=== PATIENT | female | born 1945 | race Caucasian/White ===

== ENCOUNTER 2020-12-24 11:16 | Observation (INO) ==
[2020-12-24] MEDS ORDERED: cefTRIAXone 1,000 MG in SODIUM CHLORIDE 0.9% 100 ML IV STA (13:29)
[2020-12-24 14:11] LABS: Basophils % 0.4 % (0.0-0.8); Eosinophils # 0.1 10*3/uL (0.0-0.87); Eosinophils % 1.3 % (0.00-10.9); Immature Granulocytes % 0.4 %; Immature Granulocytes Absolute 0.02 #; Lymphocytes # 1.2 10*3/uL (1.4-4.0); Lymphocytes % 21.9 % (21.3-54.2); Mean Corpuscular HGB Conc 32.5 GM/DL (32-36); Mean Platelet Volume 10.9 FL (9.6-12.0); Monocytes % 9.6 % (1.7-12.7); Neutrophils % 66.4 % (38.7-73.9); Platelet Count 105 T/CUMM (130-400); Red Blood Count 4.35 MC/CUMM (3.8-5.5); Red Cell Distribution Width 13.9 % (9.3-17.3); White Blood Count 5.3 T/CUMM (4-12)
[2020-12-24 14:17] LABS: Bilirubin,Urine Negative (Negative); Blood, Urine Negative (Negative); Glucose,Urine (UA) >=500 mg/dL (Negative); Hyaline Casts,Urine 6 /LPF (0-3); Ketones,Urine Negative (Negative); Mucus,Urine Occasional /LPF (Occasional); Nitrite,Urine Negative (Negative); Protein,Urine 30 MG/DL; RBC,Urine 3 /HPF (0-4); Squamous Epithelial Cell,Urine Occasional /HPF (0-10); Urine Appearance CLEAR (Clear); Urine Color Yellow (Yellow); Urine Specific Gravity 1.021 (1.001-1.035)
[2020-12-24 14:36] LABS: Albumin 3.5 G/DL (3.4-5.0); Bilirubin,Total 2.1 MG/DL (0.20-1.00); Calcium 8.7 MG/DL (8.5-10.1); Osmolality,Calculated 292.1 MOS/KG (273-304); Potassium 3.6 MMOL/L (3.5-5.1); Total Protein 7.3 G/DL (6.4-8.2)
[2020-12-24 16:41] LABS: ABG Base Excess 3.1 MMOL/L (-2.5-2.5); ABG HCO3 27.1 MMOL/L (20-26); ABG Oxygen Saturation 96.2 % (95-100); ABG PH 7.483 (7.35-7.45); ABG TCO2 22.9 MMOL/L (23-27)
[2020-12-24] MEDS ORDERED: ONDANSETRON 4 MG/2 ML VIAL IV PRN (16:49)
[2020-12-24] MEDS ORDERED: ACETAMINOPHEN 325 MG TABLET PO PRN (16:49)
[2020-12-24] MEDS ORDERED: DEXTROSE 50% 25 GM/50 ML VIAL IV PRN ×2 (16:49)
[2020-12-24] MEDS ORDERED: GLUCAGON 1 MG VIAL IM PRN ×2 (16:49)
[2020-12-24] MEDS: ENOXAPARIN 30 MG/0.3 ML SYRINGE SUBCUT SCH (17:20)
[2020-12-24] MEDS: SODIUM CHLORIDE 0.9% 1,000 ML IV SCH (17:39)
[2020-12-24] MEDS: LOSARTAN 50 MG TABLET PO SCH (17:39)
[2020-12-24] MEDS ORDERED: POTASSIUM CHLORIDE 20 MEQ TABLET PO SCH (21:00)
[2020-12-24] MEDS: ESCITALOPRAM 10 MG TABLET PO SCH (21:15)
[2020-12-24] MEDS: hydrALAZINE 20 MG/1 ML VIAL IV PRN (21:15)
[2020-12-24] MEDS: INSULIN REGULAR 100 UNIT/ML SUBCUT SCH (21:17)
[2020-12-25 06:10] LABS: Basophils % 0.5 % (0.0-0.8); Eosinophils % 0.7 % (0.00-10.9); Hemoglobin 12.3 GM/DL (12.0-16.0); Immature Granulocytes % 0.3 %; Immature Granulocytes Absolute 0.02 #; Mean Corpuscular HGB Conc 34.2 GM/DL (32-36); Mean Corpuscular Volume 90.5 FL (87-102); Mean Platelet Volume 11.9 FL (9.6-12.0); Neutrophils % 69.5 % (38.7-73.9); Platelet Count 90 T/CUMM (130-400); Red Blood Count 3.98 MC/CUMM (3.8-5.5); Red Cell Distribution Width 13.9 % (9.3-17.3); White Blood Count 6.1 T/CUMM (4-12)
[2020-12-25] MEDS: LEVOTHYROXINE 25 MCG TABLET PO SCH (06:44)
[2020-12-25 06:46] LABS: Calcium 8.3 MG/DL (8.5-10.1); Hypochromasia Slight
[2020-12-25 06:47] LABS: Microcytosis Slight; Platelet Estimate Decreased
[2020-12-25] MEDS ORDERED: LOSARTAN 50 MG TABLET PO SCH (09:00)
[2020-12-25] MEDS: INSULIN REGULAR 100 UNIT/ML SUBCUT SCH ×4 (09:19→22:05)
[2020-12-25] MEDS: cefTRIAXone 1,000 MG in SODIUM CHLORIDE 0.9% 100 ML IV SCH (09:29)
[2020-12-25] MEDS: LOSARTAN 50 MG TABLET PO SCH (09:29)
[2020-12-25] MEDS: hydrALAZINE 20 MG/1 ML VIAL IV PRN (09:29)
[2020-12-25] MEDS: SODIUM CHLORIDE 0.9% 1,000 ML IV SCH ×2 (10:06→23:10)
[2020-12-25] MEDS: POTASSIUM CHLORIDE RIDER 10 MEQ/100 ML PREMIX IV PRN ×7 (10:55→23:08)
[2020-12-25] MEDS: ENOXAPARIN 30 MG/0.3 ML SYRINGE SUBCUT SCH (16:33)
[2020-12-25] MEDS: ESCITALOPRAM 10 MG TABLET PO SCH (22:04)
[2020-12-26] MEDS: POTASSIUM CHLORIDE RIDER 10 MEQ/100 ML PREMIX IV PRN ×3 (00:35→11:30)
[2020-12-26] MEDS: LEVOTHYROXINE 25 MCG TABLET PO SCH (06:00)
[2020-12-26] MEDS: INSULIN REGULAR 100 UNIT/ML SUBCUT SCH ×2 (09:25→11:37)
[2020-12-26] MEDS: cefTRIAXone 1,000 MG in SODIUM CHLORIDE 0.9% 100 ML IV SCH (09:25)
[2020-12-26] MEDS: LOSARTAN 50 MG TABLET PO SCH (09:26)
[2020-12-26 11:55] VITALS: BP 154/74
[2020-12-27] MEDS ORDERED: INFLUENZA VIRUS VACCINE 0.5 ML SYRINGE IM ONE (09:00)
== END 2020-12-26 14:25 | disposition home or self-care (01) ==
LOC: N.EDINP 11:16 → N.ED 11:16 → N.5E 18:23
PROVIDERS: ADMIT Emergency Medicine; ATTEND Emergency Medicine

== ENCOUNTER 2021-08-22 10:50 | Observation (INO) ==
[2021-08-22 12:42] LABS: Basophils % 0.5 % (0.0-0.8); Eosinophils # 0.2 10*3/uL (0.0-0.87); Eosinophils % 1.8 % (0.00-10.9); Hematocrit 41.5 VOL% (35.7-47.0); Immature Granulocytes % 1.1 %; Immature Granulocytes Absolute 0.09 #; Lymphocytes # 1.9 10*3/uL (1.4-4.0); Lymphocytes % 21.8 % (21.3-54.2); Mean Corpuscular HGB Conc 33.7 GM/DL (32-36); Mean Corpuscular Volume 89.2 FL (87-102); Mean Platelet Volume 10.8 FL (9.6-12.0); Monocytes # 0.9 10*3/uL (0.11-0.8); Monocytes % 10.2 % (1.7-12.7); Neutrophils % 64.6 % (38.7-73.9); Platelet Count 168 T/CUMM (130-400); Red Blood Count 4.65 MC/CUMM (3.8-5.5); Red Cell Distribution Width 14.8 % (9.3-17.3); White Blood Count 8.5 T/CUMM (4-12)
[2021-08-22] MEDS ORDERED: SODIUM CHLORIDE 0.9% 1,000 ML IV STA (12:59)
[2021-08-22 13:01] LABS: Albumin 2.9 G/DL (3.4-5.0); Calcium 9.5 MG/DL (8.5-10.1); Osmolality,Calculated 291.4 MOS/KG (273-304); Potassium 3.1 MMOL/L (3.5-5.1); Total Protein 7.2 G/DL (6.4-8.2)
[2021-08-22 13:37] LABS: Hyaline Casts,Urine 1 /LPF (0-3); Mucus,Urine Few /LPF (Occasional); RBC,Urine 1 /HPF (0-4); Squamous Epithelial Cell,Urine Occasional /HPF (0-10)
[2021-08-22 13:38] LABS: Bilirubin,Urine Negative (Negative); Blood, Urine Negative (Negative); Glucose,Urine (UA) 100 mg/dL (Negative); Ketones,Urine Trace mg/dL (Negative); Nitrite,Urine Negative (Negative); Protein,Urine Negative (Negative); Urine Appearance Clear (Clear); Urine Color Yellow (Yellow); Urine Specific Gravity 1.025 (1.001-1.035); Urine Urobilinogen 0.2 eU/dL (<2.0); Urine pH 5.5 (4.5-8.0)
[2021-08-22] MEDS ORDERED: cefTRIAXone 1,000 MG in SODIUM CHLORIDE 0.9% 100 ML IV STA (13:47)
[2021-08-22 14:09] LABS: Barbiturates Screen,Urine Negative (Negative); Benzodiazepines Screen,Urine Negative (Negative); Cannabinoid Screen,Urine Negative (Negative); Opiate Screen,Urine Negative (Negative); Phencyclidine Screen,Urine Negative (Negative)
[2021-08-22] MEDS ORDERED: GLUCAGON 1 MG VIAL IM PRN ×2 (14:46)
[2021-08-22] MEDS ORDERED: hydrALAZINE 20 MG/1 ML VIAL IV PRN (14:46)
[2021-08-22] MEDS ORDERED: DEXTROSE 50% 25 GM/50 ML VIAL IV PRN (14:46)
[2021-08-22] MEDS ORDERED: ALUMINUM/MAGNES/SIMETH MAX STR 30 ML UDCUP PO PRN (14:46)
[2021-08-22] MEDS ORDERED: LACTULOSE 20 GM/30 ML UDCUP PO PRN (14:46)
[2021-08-22] MEDS ORDERED: ACETAMINOPHEN 325 MG TABLET PO PRN (14:46)
[2021-08-22] MEDS ORDERED: ONDANSETRON 4 MG/2 ML VIAL IV PRN (14:46)
[2021-08-22] MEDS ORDERED: DEXTROSE 10% 250 ML BAG IV PRN (14:55)
[2021-08-22] MEDS ORDERED: POTASSIUM CHLORIDE 20 MEQ TABLET PO PRN (15:06)
[2021-08-22] MEDS: LACTATED RINGERS 1,000 ML IV SCH (16:04)
[2021-08-22] MEDS: INSULIN LISPRO 100 UNIT/ML SUBCUT SCH ×2 (17:31→20:51)
[2021-08-22] MEDS: ENOXAPARIN 40 MG/0.4 ML SYRINGE SUBCUT SCH (17:31)
[2021-08-22] MEDS: POTASSIUM CHLORIDE 20 MEQ TABLET PO SCH (20:51)
[2021-08-22] MEDS: MONTELUKAST 10 MG TABLET PO SCH (20:51)
[2021-08-22] MEDS ORDERED: LOSARTAN 50 MG TABLET PO SCH (21:00)
[2021-08-22] MEDS ORDERED: NITROFURANTOIN MACROCRYSTALS 50 MG CAPSULE PO SCH (21:00)
[2021-08-23] MEDS: LACTATED RINGERS 1,000 ML IV SCH ×2 (02:06→13:29)
[2021-08-23 04:46] LABS: Basophils % 0.6 % (0.0-0.8); Eosinophils # 0.1 10*3/uL (0.0-0.87); Eosinophils % 1.4 % (0.00-10.9); Hematocrit 35.4 VOL% (35.7-47.0); Immature Granulocytes Absolute 0.05 #; Lymphocytes # 1.4 10*3/uL (1.4-4.0); Mean Corpuscular HGB Conc 33.9 GM/DL (32-36); Mean Corpuscular Volume 88.1 FL (87-102); Mean Platelet Volume 10.9 FL (9.6-12.0); Monocytes # 0.4 10*3/uL (0.11-0.8); Monocytes % 8.1 % (1.7-12.7); Neutrophils % 60.9 % (38.7-73.9); Platelet Count 107 T/CUMM (130-400); Red Blood Count 4.02 MC/CUMM (3.8-5.5); Red Cell Distribution Width 14.4 % (9.3-17.3); White Blood Count 5.1 T/CUMM (4-12)
[2021-08-23 05:06] LABS: Follicle Stimulating Hormone 44.11 MIU/ML; Luteinizing Hormone 9.97 MIU/ML
[2021-08-23 05:18] LABS: Estradiol 24.3 PG/ML; Prolactin 11.3 ng/mL (2.8-29.2)
[2021-08-23 05:22] LABS: Albumin 2.4 G/DL (3.4-5.0); Bilirubin,Total 1.3 MG/DL (0.20-1.00); Calcium 8.2 MG/DL (8.5-10.1); Osmolality,Calculated 288.8 MOS/KG (273-304); Potassium 3.3 MMOL/L (3.5-5.1); Risk Ratio 2.83; Thyroid Stimulating Hormone 1.43 uIU/ml (0.358-3.74); Total Protein 6.2 G/DL (6.4-8.2); VLDL Cholesterol 20.6 MG/DL
[2021-08-23] MEDS: LEVOTHYROXINE 25 MCG TABLET PO SCH (06:05)
[2021-08-23] MEDS: INSULIN GLARGINE 100 UNIT/ML SUBCUT SCH (08:24)
[2021-08-23] MEDS: PANTOPRAZOLE 40 MG TABLET PO SCH (08:24)
[2021-08-23] MEDS: MEMANTINE 5 MG TABLET PO SCH (08:24)
[2021-08-23] MEDS: RIVASTIGMINE 4.6 MG/24 HR PATCH TRANSDERM SCH (08:24)
[2021-08-23] MEDS: INSULIN LISPRO 100 UNIT/ML SUBCUT SCH ×4 (08:24→21:42)
[2021-08-23] MEDS: POTASSIUM CHLORIDE 20 MEQ TABLET PO SCH ×2 (08:24→21:43)
[2021-08-23] MEDS: MONTELUKAST 10 MG TABLET PO SCH (21:42)
[2021-08-23] MEDS: ENOXAPARIN 40 MG/0.4 ML SYRINGE SUBCUT SCH (21:42)
[2021-08-23] MEDS: LOSARTAN 50 MG TABLET PO SCH (21:42)
[2021-08-24] MEDS: LEVOTHYROXINE 25 MCG TABLET PO SCH (06:39)
[2021-08-24] MEDS: RIVASTIGMINE 4.6 MG/24 HR PATCH TRANSDERM SCH (09:01)
[2021-08-24] MEDS: INSULIN GLARGINE 100 UNIT/ML SUBCUT SCH (09:01)
[2021-08-24] MEDS: LOSARTAN 50 MG TABLET PO SCH ×2 (09:02→20:57)
[2021-08-24] MEDS: POTASSIUM CHLORIDE 20 MEQ TABLET PO SCH ×2 (09:02→20:57)
[2021-08-24] MEDS: INSULIN LISPRO 100 UNIT/ML SUBCUT SCH ×4 (09:02→20:57)
[2021-08-24] MEDS: MEMANTINE 5 MG TABLET PO SCH (09:02)
[2021-08-24] MEDS: PANTOPRAZOLE 40 MG TABLET PO SCH (09:02)
[2021-08-24] MEDS: ENOXAPARIN 40 MG/0.4 ML SYRINGE SUBCUT SCH (20:57)
[2021-08-24] MEDS: DOCUSATE SODIUM 100 MG CAPSULE PO PRN (20:58)
[2021-08-24] MEDS: MONTELUKAST 10 MG TABLET PO SCH (20:58)
[2021-08-25] MEDS: LEVOTHYROXINE 25 MCG TABLET PO SCH (05:30)
[2021-08-25] MEDS: INSULIN GLARGINE 100 UNIT/ML SUBCUT SCH (09:01)
[2021-08-25] MEDS: LOSARTAN 50 MG TABLET PO SCH ×2 (09:02→20:40)
[2021-08-25] MEDS: MEMANTINE 5 MG TABLET PO SCH (09:02)
[2021-08-25] MEDS: RIVASTIGMINE 4.6 MG/24 HR PATCH TRANSDERM SCH (09:02)
[2021-08-25] MEDS: POTASSIUM CHLORIDE 20 MEQ TABLET PO SCH ×2 (09:02→20:49)
[2021-08-25] MEDS: INSULIN LISPRO 100 UNIT/ML SUBCUT SCH ×4 (09:03→20:41)
[2021-08-25] MEDS: PANTOPRAZOLE 40 MG TABLET PO SCH (09:03)
[2021-08-25] MEDS: MONTELUKAST 10 MG TABLET PO SCH (20:40)
[2021-08-25] MEDS: DOCUSATE SODIUM 100 MG CAPSULE PO PRN (20:40)
[2021-08-25] MEDS: ENOXAPARIN 40 MG/0.4 ML SYRINGE SUBCUT SCH (20:49)
[2021-08-26] MEDS: LEVOTHYROXINE 25 MCG TABLET PO SCH (06:21)
[2021-08-26] MEDS: LOSARTAN 50 MG TABLET PO SCH (09:18)
[2021-08-26] MEDS: POTASSIUM CHLORIDE 20 MEQ TABLET PO SCH (09:18)
[2021-08-26] MEDS: PANTOPRAZOLE 40 MG TABLET PO SCH (09:18)
[2021-08-26] MEDS: RIVASTIGMINE 4.6 MG/24 HR PATCH TRANSDERM SCH (09:19)
[2021-08-26] MEDS: MEMANTINE 5 MG TABLET PO SCH (09:19)
[2021-08-26] MEDS: INSULIN GLARGINE 100 UNIT/ML SUBCUT SCH (09:25)
[2021-08-26] MEDS: INSULIN LISPRO 100 UNIT/ML SUBCUT SCH (09:25)
[2021-08-26 12:22] VITALS: BP 186/93
== END 2021-08-26 12:20 ==
LOC: N.ED 10:50 → INTOOBSV 14:46 → SUATTDRO 14:46 → N.EDINP 14:46 → N.5E 15:38
PROVIDERS: ADMIT Internal Medicine; ATTEND Internal Medicine